=== PATIENT | female | born 1995 | race Caucasian/White ===

== ENCOUNTER 2018-11-20 13:45 | Emergency (ER) | payer OTHER ==
[~2018-11-20] VITALS: Ht 162.6 cm; Wt 117.9 kg
[~2018-11-20 13:45] MED LIST: NEURONTIN 300300 M1; NORCO 5-325 TA1 EACH PO; PHENERGAN 25 MG25 M1 PO; TOPAMAX25 M1; TOPAMAX50 MG; ZPAK PO
[2018-11-20] MEDS ORDERED: FLONASE 0.05%50 MCG NASAL (14:01)
[2018-11-20] MEDS ORDERED: MEDROLDOSEPACK PO (14:01)
[2018-11-20] MEDS ORDERED: AMOXICILLIN 50500 MG PO (14:01)
[2018-11-20 14:10] VITALS: BP 158/79
== END 2018-11-20 14:15 | disposition home or self-care (01) ==
LOC: M.ERS 13:45
DX: H69.83 Other specified disorders of Eustachian tube, bilateral (principal); H66.91 Otitis media, unspecified, right ear; F17.210 Nicotine dependence, cigarettes, uncomplicated; Z87.01 Personal history of pneumonia (recurrent)